=== PATIENT | male | born 1990 | race Caucasian/White ===

== ENCOUNTER 2019-11-04 13:50 | Emergency (ER) | payer MEDICAID ==
[~2019-11-04] VITALS: Ht 180.3 cm; Wt 87.3 kg
[2019-11-04 15:25] LABS: BASOPHILS % (AUTO) 0.8 % (0.0-2.0); EOSINOPHILS % (AUTO) 0.6 % (1.0-6.0); HEMATOCRIT 44.6 % (41-53); HEMOGLOBIN 15.4 g/dL (13.5-17.5); LYMPHOCYTES % (AUTO) 28.5 % (22.0-44.0); MEAN CORPUSCULAR HEMOGLOBIN 30.2 pg (26.0-34.0); MEAN CORPUSCULAR HGB CONC 34.4 G/dL (31.0-37.0); MEAN CORPUSCULAR VOLUME 88 fL (80-100); MONOCYTES # (AUTO) 0.3 K/uL (0.1-1.0); MONOCYTES % (AUTO) 4.4 % (2.0-9.0); NEUTROPHILS # (AUTO) 4.6 K/uL (1.8-7.7); NEUTROPHILS % (AUTO) 65.7 % (40.0-70.0); PLATELET COUNT (AUTO) 264 K/uL (150-450); RED BLOOD CELL COUNT(AUTO) 5.09 MIL/uL (4.50-5.90)
[2019-11-04 15:28] LABS: APPEARANCE,URINE CLEAR (CLEAR); BILIRUBIN,URINE NEGATIVE (NEGATIVE); GLUCOSE, URINE (UA) NEGATIVE (NEGATIVE); KETONES,URINE NEGATIVE (NEGATIVE); LEUKOCYTE ESTERASE ,URINE NEGATIVE (NEGATIVE); NITRATE,URINE NEGATIVE (NEGATIVE); OCCULT BLOOD,URINE TRACE (NEGATIVE); PH,URINE 5.5 (5.0-8.0); PROTEIN,URINE NEGATIVE (NEGATIVE)
[2019-11-04 15:35] LABS: ANION GAP 10 mmol/L (8-16); CALCIUM, TOTAL 9.1 mg/dL (8.8-10.5); CARBON DIOXIDE 26 mmol/L (22-29); CHLORIDE 104 mmol/L (98-107); CREATININE 0.92 mg/dL (0.60-1.30); GLOMERULAR FILTR. RATE CALC > 60 mL/min (>60); GLUCOSE,RANDOM 123 mg/dL (70-110); POTASSIUM 3.5 mmol/L (3.5-5.1); SODIUM SERUM 140 mmol/L (136-145); UREA NITROGEN, BLOOD 16 mg/dL (7-18)
[2019-11-04 15:42] LABS: ALANINE AMINOTRANSFERASE 21 U/L (12-78); ALBUMIN 4.6 g/dL (3.4-5.0); ALKALINE PHOSPHATASE 150 U/L (46-116); ASPARTATE AMINOTRANSFERASE 23 U/L (15-37); BILIRUBIN,TOTAL 0.7 mg/dL (0.1-1.0); TOTAL PROTEIN, SERUM 7.8 g/dL (6.4-8.2)
[2019-11-04 15:45] LABS: BACTERIA,URINE None Seen /HPF (None Seen); RBC,URINE 0-2 /HPF (0-2); SQUAMOUS EPITHELIAL CELL,UR Few /LPF (None Seen); WBC,URINE 0-2 /HPF (0-5)
[2019-11-04] MEDS ORDERED: KETOROLAC TROMETHAMINE 30 MG/ML VIAL IVP ONE (16:15)
[2019-11-04 16:19] VITALS: BP 140/68
== END 2019-11-04 16:37 | disposition home or self-care (01) ==
LOC: EMS 13:57
DX: R10.9 Unspecified abdominal pain (principal); R31.9 Hematuria, unspecified
CPT/HCPCS: 36415; 74176; 80053; 81001; 85025; 96374; 99284; J1885

== ENCOUNTER 2020-01-17 21:38 | Emergency (ER) | payer SELFPAY ==
[~2020-01-17] VITALS: Ht 180.3 cm; Wt 90.0 kg
[2020-01-18] MEDS ORDERED: CefTRIAXone SODIUM 1 GM/VIAL IM ONE (00:15)
[2020-01-18] MEDS ORDERED: AZITHROMYCIN 500 MG TABLET PO ONE (00:15)
[2020-01-18 00:24] LABS: APPEARANCE,URINE CLOUDY (CLEAR); BILIRUBIN,URINE NEGATIVE (NEGATIVE); GLUCOSE, URINE (UA) NEGATIVE (NEGATIVE); KETONES,URINE NEGATIVE (NEGATIVE); LEUKOCYTE ESTERASE ,URINE LARGE (NEGATIVE); NITRATE,URINE NEGATIVE (NEGATIVE); OCCULT BLOOD,URINE SMALL (NEGATIVE); PH,URINE 6.5 (5.0-8.0); PROTEIN,URINE TRACE (NEGATIVE)
[2020-01-18 00:39] LABS: BACTERIA,URINE None Seen /HPF (None Seen); RBC,URINE 0-2 /HPF (0-2); SQUAMOUS EPITHELIAL CELL,UR None Seen /LPF (None Seen); WBC,URINE 51-100 /HPF (0-5)
[2020-01-18 01:45] VITALS: BP 130/79
== END 2020-01-18 01:48 | disposition home or self-care (01) ==
LOC: EMS 21:39
DX: A64 Unspecified sexually transmitted disease (principal); R82.81 Pyuria
CPT/HCPCS: 81001; 87086; 87491; 87591; 96372; 99283; J0696

== ENCOUNTER 2020-02-20 13:11 | Emergency (ER) | payer OTHER ==
[~2020-02-20] VITALS: Ht 180.3 cm; Wt 90.9 kg
[2020-02-20 15:32] LABS: APPEARANCE,URINE TURBID (CLEAR); BILIRUBIN,URINE NEGATIVE (NEGATIVE); GLUCOSE, URINE (UA) NEGATIVE (NEGATIVE); KETONES,URINE NEGATIVE (NEGATIVE); LEUKOCYTE ESTERASE ,URINE NEGATIVE (NEGATIVE); NITRATE,URINE NEGATIVE (NEGATIVE); OCCULT BLOOD,URINE NEGATIVE (NEGATIVE); PH,URINE 7.5 (5.0-8.0); PROTEIN,URINE NEGATIVE (NEGATIVE)
[2020-02-20 15:36] LABS: AMORPHOUS SEDIMENT,UR Many /LPF (None Seen); BACTERIA,URINE None Seen /HPF (None Seen); RBC,URINE None Seen /HPF (0-2); WBC,URINE 0-2 /HPF (0-5)
[2020-02-20] MEDS ORDERED: PENICILLIN G BENZATHINE LA 2,400,000 UNITS/4 ML SYRINGE IM ONE (15:45)
[2020-02-20 15:49] LABS: GLUCOSE,POINT OF CARE 85 MG/DL (70-110)
[2020-02-20 16:10] LABS: COVID AG,FIA SOURCE NASOPHARYNGEAL
[2020-02-20 17:00] VITALS: BP 120/89
== END 2020-02-20 17:00 | disposition home or self-care (01) ==
LOC: EMS 13:16
DX: A64 Unspecified sexually transmitted disease (principal); R21 Rash and other nonspecific skin eruption; K12.1 Other forms of stomatitis; Z20.828 Contact with and (suspected) exposure to other viral communicable diseases
CPT/HCPCS: 36415; 81001; 82962; 86592; 86701; 86702; 87426; 87491; 87591; 96372; 99283; C9803; J0561; U0003

== ENCOUNTER 2020-03-10 07:33 | Emergency (ER) | payer OTHER ==
[~2020-03-10] VITALS: Ht 180.3 cm; Wt 90.0 kg
[2020-03-10] MEDS ORDERED: DEXAMETHASONE 4 MG TABLET PO ONE (08:15)
[2020-03-10 08:21] LABS: COVID AG,FIA SOURCE NASOPHARYNGEAL; RAPID GROUP A STREP NEGATIVE (NEGATIVE)
[2020-03-10 08:42] VITALS: BP 121/75
== END 2020-03-10 08:43 | disposition home or self-care (01) ==
LOC: EMS 07:34
DX: J02.9 Acute pharyngitis, unspecified (principal); Z20.828 Contact with and (suspected) exposure to other viral communicable diseases
CPT/HCPCS: 87426; 87430; 99283; J8540

== ENCOUNTER 2020-03-16 07:13 | Emergency (ER) | payer OTHER ==
[~2020-03-16] VITALS: Ht 180.3 cm; Wt 90.9 kg
[2020-03-16 08:03] LABS: GLUCOSE,POINT OF CARE 105 MG/DL (70-110)
[2020-03-16 08:27] LABS: BASOPHILS % (AUTO) 0.9 % (0.0-2.0); EOSINOPHILS % (AUTO) 0.9 % (1.0-6.0); HEMATOCRIT 45.9 % (41-53); HEMOGLOBIN 15.9 g/dL (13.5-17.5); MEAN CORPUSCULAR HEMOGLOBIN 30.7 pg (26.0-34.0); MEAN CORPUSCULAR HGB CONC 34.6 G/dL (31.0-37.0); MEAN CORPUSCULAR VOLUME 89 fL (80-100); MONOCYTES # (AUTO) 0.4 K/uL (0.1-1.0); MONOCYTES % (AUTO) 6.1 % (2.0-9.0); NEUTROPHILS # (AUTO) 4.4 K/uL (1.8-7.7); NEUTROPHILS % (AUTO) 75.1 % (40.0-70.0); PLATELET COUNT (AUTO) 222 K/uL (150-450); RED BLOOD CELL COUNT(AUTO) 5.18 MIL/uL (4.50-5.90); RED CELL DISTRIBUTION WIDTH 12.9 % (11.5-14.5)
[2020-03-16 08:32] LABS: COVID AG,FIA SOURCE NASOPHARYNGEAL
[2020-03-16 08:35] LABS: ANION GAP 9 mmol/L (8-16); CALCIUM, TOTAL 9.3 mg/dL (8.8-10.5); CARBON DIOXIDE 28 mmol/L (22-29); CHLORIDE 102 mmol/L (98-107); GLOMERULAR FILTR. RATE CALC > 60 mL/min (>60); GLUCOSE,RANDOM 111 mg/dL (70-110); POTASSIUM 3.8 mmol/L (3.5-5.1); SODIUM SERUM 139 mmol/L (136-145); UREA NITROGEN, BLOOD 11 mg/dL (7-18)
[2020-03-16 08:50] LABS: ALANINE AMINOTRANSFERASE 30 U/L (12-78); ALBUMIN 4.4 g/dL (3.4-5.0); ALKALINE PHOSPHATASE 124 U/L (46-116); ASPARTATE AMINOTRANSFERASE 29 U/L (15-37); BILIRUBIN,TOTAL 0.9 mg/dL (0.1-1.0); THYROID STIMULATING HORMONE 1.86 uIU/mL (0.36-3.74); TOTAL PROTEIN, SERUM 7.3 g/dL (6.4-8.2)
[2020-03-16 10:57] VITALS: BP 110/70
== END 2020-03-16 10:59 | disposition home or self-care (01) ==
LOC: EMS 07:13
DX: R53.83 Other fatigue (principal); Z20.828 Contact with and (suspected) exposure to other viral communicable diseases
CPT/HCPCS: 84443; 86308; 87426; 93005; 36415-L1; 36415-TC; 71045-TC; U0003-CS

== ENCOUNTER 2020-04-22 11:44 | Emergency (ER) | payer OTHER ==
[~2020-04-22] VITALS: Ht 180.3 cm; Wt 90.5 kg
[2020-04-22 12:08] VITALS: BP 124/100
[2020-04-22 15:54] LABS: COVID AG,FIA SOURCE NASOPHARYNGEAL
== END 2020-04-22 14:59 | disposition home or self-care (01) ==
LOC: EMS 12:28
DX: Z20.828 Contact with and (suspected) exposure to other viral communicable diseases (principal)
CPT/HCPCS: 87426; 99283; C9803

== ENCOUNTER 2020-06-28 05:55 | Emergency (ER) | payer OTHER ==
[~2020-06-28] VITALS: Ht 180.3 cm; Wt 90.0 kg
[2020-06-28] MEDS ORDERED: ACETAMINOPHEN 500 MG TABLET PO ONE (06:30)
[2020-06-28 06:46] LABS: COVID AG,FIA SOURCE NASAL SWAB
[2020-06-28 07:56] VITALS: BP 128/67
== END 2020-06-28 07:50 | disposition home or self-care (01) ==
LOC: EMS 05:56
DX: U07.1 COVID-19 (principal); J12.82 Pneumonia due to coronavirus disease 2019
CPT/HCPCS: 87426; 93005; 99285; 71045-TC